=== PATIENT | male | born 1935 | race Caucasian/White ===

== ENCOUNTER 2025-03-02 04:14 | Emergency (ER) | payer OTHER ==
[2025-03-02] MEDS ORDERED: MAGNES/ALUMIN/SIMET 30ML UCUP ONE (04:31)
[2025-03-02] MEDS ORDERED: ACETAMINOPHEN 500 MG TAB ONE (04:31)
[2025-03-02 04:46] LABS: Absolute Lymphocytes (CBC) 1.7 K/uL (0.7-4.9); Hematocrit 41.8 % (39.6-49.0); Hemoglobin 14.1 g/dL (13.6-17.9); MCH 32.8 pg (27.0-35.0); MCHC 33.8 g/dL (32.0-36.0); MCV 96.9 fL (80-100); MPV 6.8 fL (7.6-11.3); Nucleated RBC Absolute Count 0.0 (0-0); Nucleated Red Blood Cells % 0.0 % (0-0); RBC Red Blood Cell Count 4.31 M/uL (4.33-5.43); White Blood Count 9.30 thou/uL (4.3-10.9)
[2025-03-02 04:57] LABS: ALT/SGPT 22.0 U/L (16-61); AST/SGOT 15.0 U/L (15-37); Albumin 3.3 g/dL (3.4-5.0); Albumin/Globulin Ratio 0.8 (1.1-1.8); Alkaline Phosphatase 49.0 U/L (45-117); Anion Gap 6.8 mEq/L (5.0-15.0); BUN Blood Urea Nitrogen 21.0 mg/dL (7-18); Globulin 3.9 g/dL (2.3-3.5); Glucose Level 111.0 mg/dL (74-106); Lipase 85.0 U/L (13-75); Potassium 3.8 mEq/L (3.5-5.1)
[2025-03-02 05:29] LABS: Urine Microscopic Reflex YN NO UMIC
--- NOTE | 2025-03-02 06:55 | RAD REPORT ---
EXAM: CT Abdomen With Intravenous Contrast CLINICAL HISTORY: The patient is 89 years old and is Male; Abdominal pain. TECHNIQUE: Axial computed tomography images of the abdomen with intravenous contrast. Sagittal and coronal r eformatted images were created and reviewed. This CT exam was performed using one or more of the following dose reduction techniques: automated exposure control, adjustment of the mA and/or kV acc ording to patient size, and/or use of iterative reconstruction technique. COMPARISON: XR Abdomen 02/03/2017. FINDINGS: ARTIFACTS: Some images are degraded by patient motion artifact. LIMITATIONS: Evaluation limited by absence of precontrast or delayed imaging. LUNG BASES: Minimal scarring and/or atelectasis at the lung bases. HEART: Moderate coronary artery calcification. LIVER: Unremarkable. No mass. GALLBLADDER AND BILE DUCTS: Cholelithiasis with stone near the gallbladder neck measuring 1 cm. No ductal dilation. PANCREAS: Unremarkable. No mass. No ductal dilation. SPLEEN: Unremarkable. No splenomegaly. ADRENALS: Unremarkable. No mass. KIDNEYS AND URETERS: Low-attenuation renal lesions, some of which are too small for definitive ch aracterization but most consistent with multiple cysts. This requires no specific additional follow-up. No hydronephrosis. STOMACH AND BOWEL: Assessment of bowel is somewhat limited by absence of oral contrast. Moderat e diverticulosis of the visualized colon without evidence of acute diverticulitis. No obstruction. INTRAPERITONEAL SPACE: Unremarkable. No free air. No significant fluid collection. BONES/JOINTS: Scattered degenerative changes in the spine. No acute fracture. No dislocation. SOFT TISSUES: Unremarkable. VASCULATURE: Moderate diffuse atherosclerotic calcification. Mild stenosis of the proximal bonnie ac artery. Fairly severe diffuse calcification of the splenic artery with multifocal stenosis greatest proximally. 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 The superior mesenter ic artery and renal arteries appear patent. Abdominal aorta is calcified without evidence of dissection or aneurysm. LYMPH NODES: Unremarkable. No enlarged lymph nodes. IMPRESSION: 1. Cholelithiasis. 2. Moderate diverticulosis of the visualized colon without evidence of acute diverticulitis. 3. Other chronic appearing findings. Recommend short-term follow-up if symptoms persist. Electronically signed by: Donald Jeong MD 03/02/2025 06:52 AM CDT RP Due to temporary technical issues with the [employer] reporting system, reports are being deborah d by the in-house radiologist without review as a courtesy to ensure prompt reporting the interpreting radiologist is fully responsible for the content of the report. Transcribed Date/Time: 03/02/2025 6:55 AM
--- NOTE | 2025-03-02 07:25 | EDPHYS ---
Physician Documentation [facility] Name: Kota Salas Age: 89 yrs Sex: Male : 1935 Arrival Date: 03/02/2025 Time: 04:14 Bed 5 Private MD: ED Physician Leo Chong HPI: 03/02 04:35 This 89 yrs old Male presents to ER via Ambulatory with complaints of Abdominal Pain. tt7 04:35 Patient reports sharp epigastric pain that is intermittent and started at midnight this tt7 evening, no exacerbating or alleviating factors, past medical history includes coronary artery disease, hyperlipidemia, hypertension, hypothyroidism. Historical: - Allergies: 04:32 Codeine; br2 - PMHx: 04:32 coronary atherosclerosis; Hypercholesterolemia; Hypertensive disorder; Hypertensive br2 disorder; Hypothyroidism; skin cancer; - PSHx: 04:32 JULIO C knee; cardiac stents; br2 - Immunization history:: Adult Immunizations not up to date. - Infectious Disease History:: Denies. - Social history:: Smoking status: Patient/guardian denies using tobacco, Patient uses alcohol, occasionally. Patient/guardian denies using street drugs. ROS: 04:36 Constitutional: negative for fever. Cardiovascular: negative for chest pain. tt7 Respiratory: negative for shortness of breath. MS/Extremity: negative for injury and deformity. Skin: negative for rash. Neuro: negative for focal weakness. 04:36 Abdomen/GI: Positive for abdominal pain, Negative for nausea and vomiting, Exam: 04:36 Constitutional: vital signs reviewed, well appearing. Head/Face: normocephalic, tt7 atraumatic. Eyes: no conjunctival injection, anicteric sclerae. ENT: mucus membranes moist. Neck: trachea midline, no JVD, no meningismus. Chest/axilla: normal chest wall appearance and motion, nontender, no crepitus. Cardiovascular: regular rate and rhythm, no murmurs, no rubs, no lower extremity edema. Respiratory: normal respiratory effort, no accessory muscle use, lungs CTAB. Abdomen/GI: soft, nondistended, moderate epigastric and left lower quadrant tenderness to palpation, no guarding or rebound, negative Johnson's sign, no McBurney point tenderness. Back: normal ROM. Skin: warm, dry, intact, normal turgor, normal color, no rash. MS/ Extremity: normal ROM of extremities, no gross deformities. Neuro: alert and oriented with appropriate mental status, normal speech, follows commands, no focal neurologic deficits. Psych: appropriate mood and affect. 07:21 ECG was reviewed by the Attending Physician. rn Vital Signs: 04:30 BP 204 / 92; Pulse 62; Resp 18; Temp 98.6; Pulse Ox 98% ; Weight 90.72 kg; Height 5 ft. br2 10 in. ; Pain 6/10; 06:02 BP 162 / 82; Pulse 58; Resp 17; Pulse Ox 96% on R/A; at6 07:36 BP 157 / 79; Pulse 62; Resp 16; Pulse Ox 97% ; at6 04:30 Body Mass Index 28.70 (90.72 kg, 177.8 cm) br2 04:30 Pain Scale: Adult br2 MDM: 04:20 Medical Screening Exam initiated tt7 04:37 Differential Diagnosis Gastritis, pancreatitis, mesenteric ischemia, abdominal aortic tt7 aneurysm, acute coronary syndrome. Data reviewed: vital signs, nurses notes, lab test result(s), EKG, radiologic studies. ED course: Patient is hypertensive but otherwise normal vital signs, abdominal exam has some moderate tenderness but no peritoneal signs, broad workup initiated to rule out mesenteric ischemia, abdominal aortic aneurysm, and other acute abdominal surgical pathology. 04:50 ED course: I independently interpreted the patient's EKG performed on 03/02/2025 at tt7 0437. On my interpretation, EKG demonstrates sinus bradycardia with sinus arrhythmia and first-degree AV block, ventricular rate 59 bpm, left anterior fascicular block, normal QRS interval, normal ST segments, no STEMI. ED course: Cardiac monitoring was ordered due to the potential for ischemia causing dysrythmia. I independently interpreted the patient's cardiac rhythm as sinus bradycardia at a rate of 59 bpm on the property assessment monitor. 05:35 ED course: I discussed results of laboratory studies with the patient and reassessed tt7 him, he is feeling improved, pending results of CT imaging. 06:52 ED course: Patient care signed out to Dr. Chong at shift change at 0700 pending results tt7 of CT angio abdomen. 07:04 Transition of care: Care assumed from Yung Glez DO. rn 07:19 ED course: CT abdomen images show moderate-sized gallstone near the neck of the rn gallbladder per my interpretation.. 07:22 Consideration of Admission/Observation Escalation of care including boat garnisher/observation considered. Escalation with admission considered but patient is pain-free, denies nausea, reports got some sleep and feels much better now. Imaging shows single gallstone near the neck of the gallbladder. Normal LFTs. Normal WBC. Patient is on unknown blood thinner and declines admission. States would like to avoid surgery and try dietary modifications. Patient decides to go home. Understands risks and benefits of doing such. Family member in the room and agrees as well.. Independent interpretation of the following test(s) in the Emergency Department CT Scan: My interpretation is CT abdomen images show moderate size gallstone near neck of gallbladder provide to rotation. classroom monitor: rate is 58 beats/min, Rhythm is normal sinus rhythm, regular, with no ectopy, Interpretation: bradycardia. Care significantly affected by the following chronic conditions: Hypertension, Hyperlipidemia, CAD on anticoagulation. Counseling: I had a detailed discussion with the patient and/or guardian regarding the historical points, exam findings, and any diagnostic results supporting the discharge/admit diagnosis, lab results, radiology results, the need for further work-up and treatment in the hospital. Response to treatment: the patient's symptoms have markedly improved after treatment, the patient's symptoms have resolved after treatment, the patient's condition has returned to base line, the patient is now symptom free, and as a result, I will admit patient. 07:22 Refusal of service: The patient/guardian displays adequate decision making capability rn and despite a detailed discussion of alternatives, benefits, risks, and consequences refuses: Admission to the hospital for further work-up and treatment. 03/02 04:20 Order name: CBC with Diff; Complete Time: 05:10 tt7 03/02 04:20 Order name: CMP; Complete Time: 05:10 tt7 03/02 04:20 Order name: Lipase; Complete Time: 05:10 tt7 03/02 04:29 Order name: Troponin HS; Complete Time: 05:10 tt7 03/02 04:29 Order name: Lactate w/ 2H reflex if indic.; Complete Time: 05:10 tt7 03/02 04:29 Order name: UA Rfx Ramiro Cult if indicated; Complete Time: 05:32 tt7 03/02 04:29 Order name: CT Abdomen - Angio tt7 03/02 04:29 Order name: EKG; Complete Time: 04:29 tt7 03/02 04:20 Order name: IV Saline Lock; Complete Time: 04:36 tt7 03/02 04:20 Order name: Labs collected and sent; Complete Time: 04:36 tt7 03/02 04:29 Order name: Cardiac monitoring; Complete Time: 04:36 tt7 03/02 04:29 Order name: EKG - Nurse/Tech; Complete Time: 04:36 tt7 EC:21 Rate is 59 beats/min. Rhythm is regular. QRS Goodman is Normal. QRS interval is normal. QT rn interval is normal. No Q waves. T waves are Normal. No ST changes noted. Clinical impression: Sinus bradycardia. Interpreted by me. Reviewed by me. Administered Medications: 04:36 Drug: Alum-Mag Hydroxide-Simeth PO Suspension (200 mg-200 mg-20 mg/5 mL) 30 ml PO once at6 Route: PO; 07:38 Follow up: Response: No adverse reaction at6 04:36 Drug: Acetaminophen PO 1000 mg PO once Route: PO; at6 07:37 Follow up: Response: No adverse reaction at6 Disposition Summary: 03/02/25 07:25 Discharge Ordered Notes: Location: Home rn Problem: new rn Symptoms: have improved rn Condition: Stable rn Diagnosis - Other cholelithiasis without obstruction rn Followup: rn - With: Mike Baker MD - When: As needed - Reason: Recheck today's complaints, Re-evaluation by your physician Discharge Instructions: - Discharge Summary Sheet rn - Cholelithiasis rn Forms: - Medication Reconciliation Form rn - Antibiotic popcorn candy maker - Prescription Opioid Use rn - Patient Portal Instructions rn - Leadership Thank You Letter rn Signatures: Dispatcher [employer] EDMS Leo Chong MD MD rn Riddle, Belinda RN RN br2 Yung Glez, DO tt7 Jessica Glez RN RN at6 Corrections: (The following items were deleted from the chart) 04:21 04:21 CBC+H.LAB.BRZ ordered. EDMS EDMS 04:21 04:21 COMPREHENSIVE METABOLIC PANEL+C.LAB.BRZ ordered. EDMS EDMS 04:21 04:21 LIPASE+C.LAB.BRZ ordered. EDMS EDMS
--- NOTE | 2025-03-02 07:25 | ER ---
Nurse's Notes [facility] Name: Kota Salas Age: 89 yrs Sex: Male : 1935 Arrival Date: 03/02/2025 Time: 04:14 Bed 5 Private MD: Diagnosis: Other cholelithiasis without obstruction Presentation: 03/02 04:30 Chief complaint: Patient states: ABDOMINAL PAIN (SHARP/CRAMPS) THAT BEGAN AROUND br2 MIDNIGHT WITH FREQ URINATION. DENIES N/V/D. Coronavirus screen: Client denies travel out of the [place] in the last 14 days. Ebola Screen: Patient denies exposure to infectious person. Initial Sepsis Screen: Does the patient meet any 2 criteria? No. Patient's initial sepsis screen is negative. Does the patient have a suspected source of infection? No. Patient's initial sepsis screen is negative. Risk Assessment: Do you want to hurt yourself or someone else? Patient reports no desire to harm self or others. Onset of symptoms was March 02, 2025 at 00:00. 04:30 Method Of Arrival: Ambulatory br2 04:30 Acuity: ALIYA 3 br2 Triage Assessment: 04:32 General: Appears in no apparent distress. uncomfortable, Behavior is calm, cooperative. br2 Pain: Complains of pain in left upper quadrant and left lower quadrant Pain does not radiate. Pain currently is 6 out of 10 on a pain scale. Historical: - Allergies: 04:32 Codeine; br2 - PMHx: 04:32 coronary atherosclerosis; Hypercholesterolemia; Hypertensive disorder; Hypertensive br2 disorder; Hypothyroidism; skin cancer; - PSHx: 04:32 JULIO C knee; cardiac stents; br2 - Immunization history:: Adult Immunizations not up to date. - Infectious Disease History:: Denies. - Social history:: Smoking status: Patient/guardian denies using tobacco, Patient uses alcohol, occasionally. Patient/guardian denies using street drugs. Screenin:38 [facility] ED Fall Risk Assessment (Adult) History of falling in the last 3 months, at6 including since admission No falls in past 3 months (0 pts) Confusion or Disorientation No (0 pts) Intoxicated or Sedated No (0 pts) Impaired Gait Yes (1 pt) Mobility Assist Device Used Yes (1 pt) Altered Elimination Yes (1 pt) Score/Fall Risk Level 3 or more points = High Risk Maintained a safe environment, Educated pt \T\ family on fall prevention, incl call for assistance when getting out of bed, Assessed \T\ reinforced patient's understanding of fall precautions, Hourly rounding (assess needs \T\ fall precautionary measures) done, Used ambulatory aids as needed (educated on \T\ assisted with). Abuse screen: Denies threats or abuse. Denies injuries from another. Nutritional screening: No deficits noted. Tuberculosis screening: No symptoms or risk factors identified. Assessment: 04:37 General: Appears uncomfortable, Behavior is calm, cooperative, appropriate for age. at6 Pain: Complains of pain in abdomen Pain currently is 6 out of 10 on a pain scale. Quality of pain is described as sharp, Pain began 4 hours ago. Is continuous. Neuro: No deficits noted. Cardiovascular: No deficits noted. GI: Bowel sounds present X 4 quads. Abdomen is tender to palpation in umbilical area, suprapubic area, left upper quadrant and left lower quadrant. : Reports urinary frequency. 06:04 Reassessment: Patient appears in no apparent distress at this time. Patient and/or at6 family updated on plan of care and expected duration. Pain level reassessed. Patient stood at bedside independently to use the urinal. Patient denies pain at this time. Patient states feeling better. Vital Signs: 04:30 BP 204 / 92; Pulse 62; Resp 18; Temp 98.6; Pulse Ox 98% ; Weight 90.72 kg; Height 5 ft. br2 10 in. ; Pain 6/10; 06:02 BP 162 / 82; Pulse 58; Resp 17; Pulse Ox 96% on R/A; at6 07:36 BP 157 / 79; Pulse 62; Resp 16; Pulse Ox 97% ; at6 04:30 Body Mass Index 28.70 (90.72 kg, 177.8 cm) br2 04:30 Pain Scale: Adult br2 ED Course: 04:17 Patient arrived in ED. mr 04:20 Yung Glez DO is Attending Physician. tt7 04:32 Triage completed. br2 04:32 Arm band placed on right wrist. br2 04:36 Jessica Glez, ALLI is Primary Nurse. at6 04:36 CBC with Diff Sent. at6 04:36 CMP Sent. at6 04:36 Lipase Sent. at6 04:37 Lactate w/ 2H reflex if indic. Sent. at6 04:37 Troponin HS Sent. at6 04:38 Patient has correct armband on for positive identification. Bed in low position. Call at6 light in reach. Side rails up X 1. Provided Education on: pain management, hypertension management . 04:40 Inserted saline lock: 20 gauge in right antecubital area, using aseptic technique. at6 05:23 Urine collected: clean catch specimen, clear. bm8 05:24 CT Abdomen - Angio In Process Unspecified. EDMS 07:04 Attending Physician role handed off by Yung Glez DO rn 07:04 Leo Chong MD is Attending Physician. rn 07:24 Mike Baker MD is Referral Physician. rn 07:36 No provider procedures requiring assistance completed. IV discontinued, intact, at6 bleeding controlled, No redness/swelling at site. Pressure dressing applied. Administered Medications: 04:36 Drug: Alum-Mag Hydroxide-Simeth PO Suspension (200 mg-200 mg-20 mg/5 mL) 30 ml PO once at6 Route: PO; 07:38 Follow up: Response: No adverse reaction at6 04:36 Drug: Acetaminophen PO 1000 mg PO once Route: PO; at6 07:37 Follow up: Response: No adverse reaction at6 Medication: 04:39 VIS not applicable for this client. at6 Outcome: 07:25 Discharge ordered by . rn 07:36 Discharged to home via wheelchair, with family, at6 07:36 Condition: stable 07:36 Discharge instructions given to patient, family, Instructed on discharge instructions, follow up and referral plans. Demonstrated understanding of instructions, follow-up care, 07:38 Patient left the ED. at6 Signatures: Dispatcher [employer] EDSD AcevesCynthia, Reg Reg mr Leo Chong MD MD rn McDonald, Brad RN RN bm8 Meme Clark RN RN br2 Yung Glez DO DO tt7 Jessica Glez, RN RN at6
[2025-03-02 11:53] VITALS: TEMP 98.6
[2025-03-02 12:12] VITALS: BP 157/79; O2SAT 97
== END 2025-03-02 07:38 | disposition home or self-care (01) ==
LOC: ER 04:14
DX: K80.80 Other cholelithiasis without obstruction (principal)
CPT/HCPCS: 93005; 85025; 36415; 83605; 81003; 84484; 83690; 80053; 74175; 99284; Q9967